=== PATIENT | male | born 1985 | race Asian ===

== ENCOUNTER 2018-06-07 11:11 | Emergency (ER) | payer OTHER ==
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
[2018-06-07] MEDS ORDERED: KETOROLAC 30 MG/1 ML SDV IVP ONE (11:37)
[2018-06-07] MEDS ORDERED: LET GEL TOPICAL 1 EA SYR TP ONE (11:55)
[2018-06-07 13:29] VITALS: BP 117/65
== END 2018-06-07 13:25 | disposition home or self-care (01) ==
LOC: EDUNIT#
DX: S06.0X9A Concussion with loss of consciousness of unspecified duration, initial encounter (principal); S00.81XA Abrasion of other part of head, initial encounter; S60.511A Abrasion of right hand, initial encounter; S60.512A Abrasion of left hand, initial encounter; S80.211A Abrasion, right knee, initial encounter; S80.212A Abrasion, left knee, initial encounter; R40.2412 Glasgow coma scale score 13-15, at arrival to emergency department; V18.0XXA Pedal cycle driver injured in noncollision transport accident in nontraffic accident, initial encounter; Y92.482 Bike path as the place of occurrence of the external cause; Y93.55 Activity, bike riding; Y99.8 Other external cause status
CPT/HCPCS: 82435-PO; 82565-PO; 82947-PO; 84132-PO; 84295-PO; 84520-PO; 85014-PO; 96374; J1885